=== PATIENT | female | born 1985 | race Caucasian/White ===

== ENCOUNTER 2018-10-17 18:01 | Emergency (ER) | payer MEDICAID, OTHER ==
[~2018-10-17] VITALS: Ht 160 cm; Wt 53.6 kg
[2018-10-17 18:10] VITALS: BP 116/68
[2018-10-17] MEDS ORDERED: HYDR-3965 PO (20:15)
[2018-10-17] MEDS ORDERED: CLIN150C8 PO (20:15)
== END 2018-10-17 20:26 | disposition home or self-care (01) ==
LOC: ER 18:04
DX: K08.89 Other specified disorders of teeth and supporting structures (principal); Z88.1 Allergy status to other antibiotic agents
CPT/HCPCS: 99283

== ENCOUNTER 2019-03-11 10:04 | Emergency (ER) | payer OTHER ==
[~2019-03-11] VITALS: Ht 160 cm; Wt 51.0 kg
[~2019-03-11 10:04] MED LIST: CLIN150C8 PO
[2019-03-11 10:54] LABS: CLARITY,URINE CLOUDY (Clear); COLOR,URINE YELLOW (Yellow); GLUCOSE, URINE NEGATIVE (Neg); KETONES,URINE NEGATIVE (Neg); LEUKOCYTE ESTERASE ,URINE NEGATIVE (Neg); NITRITES, URINE NEGATIVE (Neg); OCCULT BLOOD,URINE NEGATIVE (Neg); PROTEIN,URINE TRACE mg/dl (Neg); UA COLLECTION TYPE CLN CATCH MIDSTREAM; UROBILINOGEN,URINE 0.2 E.U/dL (0.2-1.0)
[2019-03-11 10:55] LABS: URINE HCG NEGATIVE (NEG)
[2019-03-11 11:05] LABS: MUCUS STRANDS MODERATE /LPF (Neg); SQUAMOUS EPITHELIAL CELL,UR MANY /LPF (FEW)
[2019-03-11 11:07] LABS: BACTERIA,URINE 1+ /HPF (Neg); RBC,URINE NONE SEEN /HPF (0-2); WBC,URINE 0-4 /HPF (0-4)
[2019-03-11 11:08] LABS: FINE GRANULAR CAST 0-3 /LPF (NEGATIVE); HYALINE CASTS 0-3 /LPF (NEGATIVE)
[2019-03-11 11:26] LABS: BASOPHILS % (AUTO) 0.7 % (0-1); EOSINOPHILS % (AUTO) 0.3 % (0-6); HEMATOCRIT 41.5 % (35.0-45.0); HEMOGLOBIN 14.4 g/dl (12.0-16.0); LYMPHOCYTES % (AUTO) 21.2 % (21-51); MEAN CORPUSCULAR HEMOGLOBIN 38.5 PG (27.0-31.0); MEAN CORPUSCULAR HGB CONC 34.7 g/dL (33.0-36.5); MEAN CORPUSCULAR VOLUME 110.9 FL (78-98); MEAN PLATELET VOLUME 7.4 FL (7.4-10.4); MONOCYTES # (AUTO) 0.1 X10'3 (0-0.9); MONOCYTES % (AUTO) 2.9 % (2-12); NEUTROPHILS # (AUTO) 3.5 X10'3 (1.8-7.7); NEUTROPHILS % (AUTO) 74.9 % (42-75); PLATELET COUNT 301 X10'3 (140-440); RED BLOOD COUNT 3.74 X10'6 (4.20-5.60); RED CELL DISTRIBUTION WIDTH 13.5 % (11.5-14.5); WHITE BLOOD COUNT 4.7 X10'3 (4.5-11.0)
[2019-03-11 11:38] LABS: ALANINE AMINOTRANSFERASE 74 U/L (12-78); ALBUMIN 3.5 G/DL (3.4-5.0); ALBUMIN/GLOBULIN RATIO 0.9 (1.1-1.5); ALKALINE PHOSPHATASE 87 IU/L (46-116); ANION GAP 12 (8-16); ASPARTATE AMINO TRANSFERASE 111 U/L (10-37); BLOOD UREA NITROGEN 8 MG/DL (7-18); BUN/CREATININE RATIO 9.6 (6.6-38.0); CALCIUM 9.9 MG/DL (8.5-10.1); CHLORIDE 103 MMOL/L (99-107); CREATININE 0.83 MG/DL (0.40-0.90); GLUCOSE 138 MG/DL (70-104); POTASSIUM 4.3 MMOL/L (3.5-5.1); SODIUM 142 MMOL/L (135-145); TOTAL CARBON DIOXIDE 27.1 MMOL/L (24-32); TOTAL PROTEIN 7.6 G/DL (6.4-8.2); eGFR 80 ML/MIN
[2019-03-11 11:45] LABS: PLATELET ESTIMATE NORMAL
[2019-03-11 11:46] LABS: POLYCHROMASIA 1+; STOMATOCYTES 3+
[2019-03-11 12:03] LABS: LIPASE 345 U/L (73-393)
[2019-03-11] MEDS ORDERED: normal saline 1000ML IV soln IVB ONE ×2 (12:15→12:20)
[2019-03-11] MEDS ORDERED: LORazepam 2 mg/ml vial IV ONE ×3 (12:20→12:55)
[2019-03-11] MEDS ORDERED: magnesium 2GM in 50ml NS 50 ML IV ONE (12:20)
[2019-03-11] MEDS ORDERED: diatr meglu/diatrizoate 30ml oral sol.-(3 dose) bottle PO SCH (12:25)
[2019-03-11] MEDS: morphine 2 MG/ML inj. syringe IV PRN ×3 (12:26→14:00)
[2019-03-11 12:35] LABS: MAGNESIUM 1.5 MG/DL (1.5-2.4)
[2019-03-11 12:38] LABS: ETHANOL < 0.010 GM/DL (0.0-0.010)
[2019-03-11] MEDS ORDERED: iohexol 300mg/ml 100ml inj. ONE (12:40)
[2019-03-11 12:42] LABS: URINE AMPHETAMINE SCREEN NEGATIVE (Neg); URINE BARBITUATE SCREEN NEGATIVE (Neg); URINE BENZODIAZEPINES SCREEN NEGATIVE (Neg); URINE CANNABINOID SCREEN POSITIVE (Neg); URINE COCAINE SCREEN NEGATIVE (Neg); URINE METHADONE SCREEN NEGATIVE (Neg); URINE OPIATE SCREEN NEGATIVE (Neg); URINE PHENCYCLIDINE SCREEN NEGATIVE (Neg)
--- NOTE | 2019-03-11 14:19 | NUR ---
Pt states she has been drinking vodka for the last 4 months all day, unknown amount of alcohol.
[2019-03-11] MEDS ORDERED: SUCR1TAB34 PO (14:41)
[2019-03-11] MEDS ORDERED: PANT20TA3 PO (14:41)
[2019-03-11] MEDS ORDERED: CHLO1CAP PO (14:42)
[2019-03-11] MEDS ORDERED: pantoprazole 40 MG vial IV ONE (14:45)
[2019-03-11 15:04] VITALS: BP 139/91
== END 2019-03-11 15:08 | disposition home or self-care (01) ==
LOC: ER 10:04
DX: K29.20 Alcoholic gastritis without bleeding (principal); F10.10 Alcohol abuse, uncomplicated; E86.0 Dehydration; F12.90 Cannabis use, unspecified, uncomplicated; Z90.710 Acquired absence of both cervix and uterus; Z88.1 Allergy status to other antibiotic agents; Z79.2 Long term (current) use of antibiotics; Z79.899 Other long term (current) drug therapy
CPT/HCPCS: 36415; 74177; 80053; 80305; 80320; 81001; 81025; 83690; 83735; 85025; 85610; 96374; 96375; 96376; 99284; C9113; J2060; J2270; J3475; J7030; Q9963; Q9967

== ENCOUNTER 2022-09-05 07:19 | Emergency (ER) | payer MEDICAID ==
[~2022-09-05] VITALS: Ht 160 cm; Wt 54.0 kg
[~2022-09-05 07:19] MED LIST changes: +CHLO1CAP PO; +PANT20TA18 PO; +SUCR1TAB34 PO
[2022-09-05 08:25] LABS: LYMPHOCYTES # (AUTO) 0.7 X10'3 (1.1-4.8); MEAN PLATELET VOLUME 8.6 FL (7.4-10.4); MONOCYTES # (AUTO) 0.1 X10'3 (0-0.9); NEUTROPHILS # (AUTO) 2.2 X10'3 (1.8-7.7); PLATELET COUNT 110 X10'3 (140-440)
[2022-09-05 08:28] LABS: BASOPHILS % (AUTO) 0.9 % (0-1); EOSINOPHILS % (AUTO) 0.6 % (0-6); HEMATOCRIT 43.4 % (35.0-45.0); MEAN CORPUSCULAR HEMOGLOBIN 36.3 PG (27.0-31.0); MEAN CORPUSCULAR HGB CONC 34.6 g/dL (33.0-36.5); MEAN CORPUSCULAR VOLUME 104.7 FL (78-98); MONOCYTES % (AUTO) 2.8 % (2-12); NEUTROPHILS % (AUTO) 73.7 % (42-75); RED BLOOD COUNT 4.14 X10'6 (4.20-5.60); RED CELL DISTRIBUTION WIDTH 16.1 % (11.5-14.5)
[2022-09-05 08:30] LABS: ALBUMIN 2.8 G/DL (3.4-5.0); ALBUMIN/GLOBULIN RATIO 0.6 (1.1-1.5); ALKALINE PHOSPHATASE 73 IU/L (46-116); ANION GAP 23 (8-16); BILIRUBIN,TOTAL 0.9 MG/DL (0.1-1.0); BLOOD UREA NITROGEN 18 MG/DL (7-18); CALCIUM 6.7 MG/DL (8.5-10.1); CHLORIDE 92 MMOL/L (99-107); CREATININE 2.24 MG/DL (0.40-0.90); GLUCOSE 187 MG/DL (70-104); LIPASE 396 U/L (73-393); SODIUM 128 MMOL/L (135-145); TOTAL PROTEIN 7.6 G/DL (6.4-8.2); eGFR 25 ML/MIN
[2022-09-05] MEDS ORDERED: pantoprazole 40 MG vial IV ONE (08:40)
[2022-09-05] MEDS ORDERED: normal saline 1000ML IV soln IV ONE (08:40)
[2022-09-05] MEDS ORDERED: metoclopramide 5 mg/ml inj IV ONE (08:40)
[2022-09-05] MEDS ORDERED: pantoprazole 40MG/NS 100ML BAG 100 ML IV ONE (08:50)
[2022-09-05 09:04] LABS: ASPARTATE AMINO TRANSFERASE 96 U/L (10-37)
--- NOTE | 2022-09-05 09:09 | NUR ---
lab notified rn that co2 critical 13. rn let dr swann know.
[2022-09-05] MEDS ORDERED: ketorolac trometh. 30mg/ml inj. IV ONE (09:10)
--- NOTE | 2022-09-05 09:11 | NUR ---
PT C/O 12/[address] PENNY GIVE 30MG TORADOL
--- NOTE | 2022-09-05 09:34 | NUR ---
pt unable to provide the urine specimen at this time ,instructed to try after the iv fluid is finished.
[2022-09-05 09:35] LABS: ANISOCYTOSIS 1+; PLATELET ESTIMATE DECREASED; TOTAL CELLS COUNTED 100
[2022-09-05 09:36] LABS: LARGE PLATELETS FEW; ROULEAUX 1+
[2022-09-05 09:48] LABS: ABG BASE EXCESS -7.8 mmol/L (-2.0-2.0); ABG HCO3 15.8 mmol/L (22.0-26.0); ABG OXYGEN SATURATION 90.5 % (94-97); ABG PCO2 (T) 28.1 mmHg (32.0-45.0); ABG PO2 (T) 72.6 mmHg (75.0-100.0); ALLEN'S TEST POSITIVE; FCOHb 0.4 % (0.0-3.9); FMetHb 0.3 % (0.0-1.5); FO2Hb 89.9 % (94-97); TOTAL HEMOGLOBIN 15.3 G/dl (12.0-16.0)
[2022-09-05 09:50] LABS: POTASSIUM 3.5 MMOL/L (3.5-5.1)
[2022-09-05 09:51] LABS: ALANINE AMINOTRANSFERASE 44 U/L (12-78)
[2022-09-05] MEDS ORDERED: ringers solution, lacted 1,000 ML IV ONE (09:55)
[2022-09-05] MEDS ORDERED: thiamine 100mg/ml 2ml inj. IV ONE (11:05)
[2022-09-05 11:29] LABS: CLARITY,URINE CLOUDY (Clear); COLOR,URINE YELLOW (Yellow); GLUCOSE, URINE 100 mg/dl (Neg); KETONES,URINE TRACE mg/dl (Neg); LEUKOCYTE ESTERASE ,URINE NEGATIVE (Neg); NITRITES, URINE NEGATIVE (Neg); OCCULT BLOOD,URINE TRACE-INTACT (Neg); PH,URINE 5.5 (4.8-8.0); PROTEIN,URINE 100 mg/dl (Neg); UROBILINOGEN,URINE 0.2 E.U/dL (0.2-1.0)
[2022-09-05 11:31] LABS: URINE HCG NEGATIVE (NEG)
[2022-09-05 11:34] LABS: UA COLLECTION TYPE CLN CATCH MIDSTREAM
[2022-09-05 11:39] LABS: BACTERIA,URINE 4+ /HPF (Neg); MUCUS STRANDS MODERATE /LPF (Neg); RBC,URINE 0-2 /HPF (0-2); SQUAMOUS EPITHELIAL CELL,UR MANY /LPF (FEW); WBC CLUMPS,URINE MANY /HPF (NEGATIVE); WBC,URINE TNTC /HPF (0-4)
[2022-09-05 12:13] VITALS: BP 112/78
[2022-09-05] MEDS ORDERED: IBUP-1984 PO (13:10)
[2022-09-05 13:11] LABS: ALBUMIN 2.1 G/DL (3.4-5.0); ANION GAP 12 (8-16); BLOOD UREA NITROGEN 17 MG/DL (7-18); BUN/CREATININE RATIO 11.7 (10.0-20.0); CHLORIDE 102 MMOL/L (99-107); CREATININE 1.45 MG/DL (0.40-0.90); GLUCOSE 129 MG/DL (70-104); POTASSIUM 3.2 MMOL/L (3.5-5.1); SODIUM 134 MMOL/L (135-145); TOTAL CARBON DIOXIDE 19.6 MMOL/L (24-32); eGFR 41 ML/MIN
[2022-09-05 13:19] LABS: CALCIUM 5.8 MG/DL (8.5-10.1)
== END 2022-09-05 13:31 | disposition home or self-care (01) ==
LOC: ER 07:21
DX: E87.20 Acidosis, unspecified (principal); F12.10 Cannabis abuse, uncomplicated; Z90.49 Acquired absence of other specified parts of digestive tract; Z88.1 Allergy status to other antibiotic agents; Z79.899 Other long term (current) drug therapy; Z79.1 Long term (current) use of non-steroidal anti-inflammatories (NSAID); Z79.2 Long term (current) use of antibiotics
CPT/HCPCS: 36415; 36600; 80048; 80053; 81001; 81025; 82803; 83690; 85007; 85018; 85025; 96361; 96365; 96375; 99285; C9113; J1885; J2765; J3411; J7030; J7120

== ENCOUNTER 2022-09-05 14:14 | Emergency (ER) | payer MEDICAID ==
[~2022-09-05 14:14] MED LIST changes: +IBUP-1984 PO
== END 2022-09-05 16:53 | disposition home or self-care (01) ==
LOC: ER 14:14
DX: R79.9 Abnormal finding of blood chemistry, unspecified (principal); Z53.21 Procedure and treatment not carried out due to patient leaving prior to being seen by health care provider